=== PATIENT | male | born 1995 | race Caucasian/White ===

== ENCOUNTER 2017-01-01 09:34 | Emergency (ER) | payer BC ==
[2017-01-01 10:07] VITALS: BP 136/75
--- NOTE | 2017-01-01 12:19 | UC ---
Ger Rust Auryana, [facility] on 01/01/17 at 1103 . Hand/Wrist HPI - HPI Summary HPI Summary: IN ROOM NOTE: 21 year male presents with bleeding of the right pinky finger starting at 10:00 today. He reports that he had a wart removed with liquid nitrogen on Tuesday morning (12/28/16) - a blood blister formed about an hour after and when he removed tape dressing today, the blister opened and started bleeding. Patient denies any dizziness or lightheadedness now. He denies any other complaints. PMHx is not significant for any bleeding abnormalities or any hospital admissions. FHx is significant for DM and HTN. 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 NOTE: Vital signs stable. BP 136/75. Previous visit history non-contributory to current complaint. NURSE NOTE: had warts removed on his pinky finger on Tuesday. now they are aswollen up and blistered, discomfort arises when pt touches it; blood blister broke when dressing was taken off. draining over a clean gauze at the moment - History Of Current Complaint Chief Complaint: UCUpperExtremity Stated Complaint: SKIN COMPLAINT Time Seen by Provider: 01/01/17 10:24 Hx Obtained From: Patient Mechanism Of Injury: wart removal 12/28/16 Onset/Duration: Sudden Onset, Lasting Hours - starting today at 10:00, Still Present Severity Initially: Mild Severity Currently: Mild Associated Signs And Symptoms: Positive: Bruising - bleeding - Allergies/Home Medications Allergies/Adverse Reactions: Allergies Allergy/AdvReac Type Severity Reaction Status Date / Time No Known Allergies Allergy Unverified 12/19/13 10:46 PMH/Surg Hx/FS Hx/Imm Hx Endocrine History Of: Denies: Diabetes, Thyroid Disease Cardiovascular History Of: Denies: Cardiac Disorders, Hypertension Respiratory History Of: Denies: COPD, Asthma GI/ History Of: Denies: Ulcer - Surgical History Surgical History: None - Family History Known Family History: Positive: Hypertension, Diabetes - Social History Occupation: Student Lives: With Family Alcohol Use: None Substance Use Type: None Smoking Status (MU): Never Smoked Tobacco Review of Systems Constitutional: Negative Skin: Other - BLOOD BLISTER WITH ACTIVE BLEEDING ON THE LEFT PINKY FINGER Eyes: Negative ENT: Negative Respiratory: Negative Cardiovascular: Negative Gastrointestinal: Negative Genitourinary: Negative Motor: Negative Neurovascular: Negative Musculoskeletal: Negative Neurological: Negative Psychological: Negative All Other Systems Reviewed And Are Negative: Yes Physical Exam Triage Information Reviewed: Yes Appearance: Well-Appearing, No Pain Distress, Well-Nourished Vital Signs: Initial Vital Signs Temp 97.3 F 01/01/17 10:00 Pulse 86 01/01/17 10:00 Resp 16 01/01/17 10:00 BP 136/75 01/01/17 10:00 Pulse Ox 100 01/01/17 10:00 Vital Signs Reviewed: Yes Eyes: Positive: Conjunctiva Clear ENT: Positive: Hearing grossly normal, Pharynx normal, TMs normal Neck: Positive: Supple, Nontender, No Lymphadenopathy Respiratory: Positive: Chest non-tender, Lungs clear, Normal breath sounds, No respiratory distress Cardiovascular: Positive: RRR, Other: - 106 MINDA (HISTORY OF INNOCENT MURMUR) Abdomen Description: Positive: Nontender, No Organomegaly, Soft Bowel Sounds: Positive: Present Musculoskeletal: Positive: Strength Intact, Other: - HOUSER Neurological: Positive: Alert Psychological: Positive: Age Appropriate Behavior Skin: Positive: Other - RIGHT 5TH FINGER: 2.5 CM BLOOD BLISTER WELL A 1.0 BLOOD BLISTER PROXIMAL TO THE OTHER BLISTER.. Negative: rashes Hand/Wrist Course/Dx - Course Course Of Treatment: Patient present with blood blister of right 5th finger. Area will be soaked and cleaned - NOTED THAT THE DISTAL BLOOD BLISTER WAS OOZING BLOOD AND WAS EXPRESSED SO THAT ALL BLOOD WAS REMOVED. PROXIMAL BLOOD BLISTER WAS INTACT BUT FLACCID. THE AREA WAS CLEANED AND DRESSED. PATIENT AND FATHER INSTRUCTED TO REMOVE IF ANY INFECTIONS OCCURS AND TO RE-DRESS DAILY USING SOME SORT OF PRESSURE DRESSSING, ABX OINTMENT, AND MANUAL PRESSURE. ADVISED TO CALL IN 2 DAYS IF ANY QUESTIONS OR CONCERNS. Note: patient felt mild dizziness seeing blood; supine for 5 minutes with resolution of condition. No syncope or other symptoms. Patient is Urgent/Emergent. BP elevated due to current condition w/o HTN in PMH. - Differential Dx/Diagnosis Provider Diagnoses: 1. BLOOD BLISTER, right fifth finger. 2. near syncope from seeing blood Discharge - Discharge Plan Condition: Stable Disposition: HOME Patient Education Materials: Near Syncope (ED), Blister (ED) Referrals: Michelle Mcdermott MD [Primary Care Provider] - 3 Days Additional Instructions: WE DISCUSSED: 1. Your blood blister has been opened. There is little concern about too much bleeding but because it is open, you should watch for any signs of infection. Watch for swelling, redness, pain, or temperature. 2. Remove dressing in 24 hours. Re dress after cleansing. Use antibiotic ointment and mild pressure from bandaid. Elevate. 3. Call me in 2 days if any concerns. This may take 2 or more weeks to heal completely. 4. Re check at any time for dizziness or fainting. Today, you probably had a reaction to the bleeding and discomfort. I have given you information about near-syncope. The documentation as recorded by the Ger mckeon Auryana accurately reflects the service I personally performed and the decisions made by me, Taco Luis MD.
== END 2017-01-01 12:19 | disposition home or self-care (01) ==
LOC: UCEAST 09:34
DX: S60.426A Blister (nonthermal) of right little finger, initial encounter (principal); X58.XXXA Exposure to other specified factors, initial encounter
CPT/HCPCS: 99202; G0463